=== PATIENT | female | born 1950 | race Caucasian/White ===

== ENCOUNTER → 2017-04-11 | Outpatient (CLI) | payer MEDICARE, BC ==
[~2017-04-11] MED LIST: ESTROVEN; GLUCOSAMINE & C1 CA2 PO
--- NOTE | 2017-04-11 15:46 | RADIOLOGY REPORT PS360 ---
HAND-LT-3 VIEWS HISTORY: DEQUERVAIN'S TENOSYNOVITIS ORDERING PHYSICIAN: MARIA G Azul PATIENT AGE: 66 years COMPARISON: None FINDINGS: No fracture or dislocation. No lytic or blastic change. There is normal mineralization. The joint spaces are well-preserved. No significant degenerative/arthritic changes. No erosive changes evident. Metallic artifact representing an a ring obscures the mid shaft of the proximal phalanx of the fourth digit IMPRESSION: Negative left hand
--- NOTE | 2017-04-11 15:48 | RADIOLOGY REPORT PS360 ---
WRIST-3 VIEWS-LT HISTORY: DEQUERVAIN'S TENOSYNOVITIS ORDERING PHYSICIAN: MARIA G Azul PATIENT AGE: 66 years COMPARISON: None FINDINGS: No fracture or dislocation. No lytic or blastic change. There is normal mineralization. The joint spaces are well-preserved. No significant degenerative/arthritic changes. No erosive changes evident. IMPRESSION: Negative left wrist, no acute finding MRI may be of further value for this entity,DEQUERVAIN'S TENOSYNOVITIS, if clinically warranted.
== END ==
LOC: RAD 14:39
DX: M65.4 Radial styloid tenosynovitis [de Quervain] (principal)